=== PATIENT | male | born 1975 | race Caucasian/White ===

== ENCOUNTER 2016-09-10 09:38 | Emergency (ER) | payer OTHER ==
[~2016-09-10 09:38] MED LIST: GLU500 PO; LIPI20 PO; ZES20 PO
[2016-09-10 09:51] VITALS: BP 133/106
== END 2016-09-10 11:48 | disposition home or self-care (01) ==
LOC: ED 09:38
DX: S61.412A Laceration without foreign body of left hand, initial encounter (principal); I10 Essential (primary) hypertension; E11.9 Type 2 diabetes mellitus without complications; X58.XXXA Exposure to other specified factors, initial encounter; Y93.89 Activity, other specified; Y99.8 Other external cause status; Y92.89 Other specified places as the place of occurrence of the external cause
CPT/HCPCS: 90715; J2001

== ENCOUNTER 2017-11-07 07:34 | Emergency (ER) | payer OTHER ==
[~2017-11-07] VITALS: Ht 160 cm; Wt 79.8 kg
[2017-11-07 07:39] VITALS: Ht 160 cm; Wt 79.8 kg
[2017-11-07 08:57] LABS: BASOPHIL % 0.5 % (0-2); PLATELET COUNT 288 x10^3mcL (130-400)
[2017-11-07 09:01] LABS: microscopic required? YES; urine erythrocyte 3+ (NEGATIVE)
[2017-11-07 09:08] LABS: CALCIUM 8.4 mg/dL (8.5-10.1); CARBON DIOXIDE 24.6 mmol/L (21-32); CREATININE SERUM 2.3 mg/dL (0.7-1.3); POTASSIUM SERUM 4.1 mmol/L (3.5-5.1)
[2017-11-07 09:12] LABS: BILIRUBIN TOTAL 0.26 mg/dL (0.20-1.00)
[2017-11-07 09:13] LABS: ALBUMIN 1.3 g/dL (3.4-5.0); TOTAL PROTEIN, SERUM 4.7 g/dL (6.4-8.2)
[2017-11-07 09:35] LABS: CHOLESTEROL/HDL RATIO 4.8
[2017-11-07 09:45] LABS: T3 TOTAL 0.94 ng/mL
[2017-11-07 10:18] VITALS: BP 166/99
[2017-11-07 10:18] LABS: FREE T4 1.07 ng/dL (0.76-1.46); FREE THYROXINE INDEX 1.8 ug/dL (1.4-4.5); T4(THYROXINE) 5.2 ug/dL (4.7-13.3)
== END 2017-11-07 10:18 | disposition home or self-care (01) ==
LOC: ED 07:34
PROVIDERS: Specialist
DX: R10.13 Epigastric pain (principal); I10 Essential (primary) hypertension; E11.9 Type 2 diabetes mellitus without complications; E78.00 Pure hypercholesterolemia, unspecified
CPT/HCPCS: 82962; 83880; 84439; J3490; J7030; Q0092

== ENCOUNTER 2018-12-13 14:12 | Emergency (ER) | payer OTHER ==
[~2018-12-13] VITALS: Ht 165.1 cm; Wt 68.9 kg
[2018-12-13 14:17] VITALS: Ht 165.1 cm; Wt 68.9 kg
[2018-12-13 17:02] VITALS: BP 129/81
== END 2018-12-13 17:02 | disposition home or self-care (01) ==
LOC: ED 14:12
DX: S06.0X0A Concussion without loss of consciousness, initial encounter (principal); I10 Essential (primary) hypertension; E11.9 Type 2 diabetes mellitus without complications; E78.00 Pure hypercholesterolemia, unspecified; W18.30XA Fall on same level, unspecified, initial encounter; Y93.89 Activity, other specified; Y92.89 Other specified places as the place of occurrence of the external cause; Y99.8 Other external cause status